=== PATIENT | female | born 1965 | race Two or more races ===

== ENCOUNTER 2022-08-02 09:55 | Emergency (ER) | payer MEDICAID ==
[~2022-08-02] VITALS: Ht 170.2 cm; Wt 68.7 kg
[2022-08-02 12:09] VITALS: BP 167/68
[2022-08-02] MEDS ORDERED: PRED20TA2 PO (12:41)
[2022-08-02] MEDS ORDERED: ALBU108A5 IN (12:41)
[2022-08-02] MEDS ORDERED: BENZ100C19 PO (12:41)
[2022-08-02] MEDS ORDERED: AZITTAB PO (12:41)
== END 2022-08-02 12:48 | disposition home or self-care (01) ==
LOC: ER 09:55
DX: J40 Bronchitis, not specified as acute or chronic (principal)
CPT/HCPCS: 71046